=== PATIENT | female | born 1990 | race Caucasian/White ===

== ENCOUNTER 2017-06-16 19:22 | Emergency (ER) | payer BC ==
[~2017-06-16] VITALS: Ht 162.6 cm; Wt 54.4 kg
[2017-06-16 19:22] VITALS: BP_SYST 146
[~2017-06-16 19:22] MED LIST: BCP
[2017-06-16] MEDS ORDERED: KETOROLAC TROMETHAMINE 60 MG/2 ML VIAL IM ONE (20:15)
[2017-06-16] MEDS ORDERED: KETOROLAC TROMETHAMINE 30 MG VIAL ONE (20:20)
[2017-06-16] MEDS ORDERED: KETOROLAC TROMETHAMINE 30 MG VIAL IVP ONE (20:30)
[2017-06-16] MEDS ORDERED: NACL 0.9% 1,000 ML IV ONE (20:30)
[2017-06-16 21:06] LABS: BILIRUBIN,URINE NEGATIVE (NEGATIVE); BLOOD, URINE NEGATIVE (NEGATIVE); CLARITY/URINE CLEAR (CLEAR); COLOR,URINE YELLOW (YELLOW); GLUCOSE,URINE NEGATIVE (NEGATIVE); KETONES,URINE NEGATIVE (NEGATIVE); LEUKOCYTE ESTERASE ,URINE NEGATIVE (NEGATIVE); NITRITE, URINE NEGATIVE (NEGATIVE); PH,URINE 6.5 (5.0-8.0); PROTEIN URINE NEGATIVE (NEGATIVE); UROBILINOGEN,URINE 0.2 (0.2-1.0)
[2017-06-16 22:33] VITALS: BP_SYST 136
== END 2017-06-16 22:33 | disposition home or self-care (01) ==
LOC: SED 19:22
DX: N94.6 Dysmenorrhea, unspecified (principal); E03.9 Hypothyroidism, unspecified
CPT/HCPCS: 76856; 81003; 81025; 96374; 96361; 99285; J1885; J7030